=== PATIENT | female | born 1955 | race Caucasian/White ===

== ENCOUNTER 2024-05-29 11:21 | Inpatient (IN) | payer MEDICARE, BC ==
[2024-05-29] VITALS (15 sets, daily range): BP systolic 116–145; BP diastolic 75–96; PULSE 102–151; RESP 18–29; TEMP 98.1–99.1; O2SAT 95–96
[~2024-05-29] VITALS: Ht 170.2 cm; Wt 89.8 kg
[~2024-05-29 11:21] MED LIST: HYDROCODON-ACE1 EA12 PO; NAPROXEN250 MG PO
[2024-05-29] MEDS: SODIUM CHLORIDE 0.9% 500ML 500 ML IV ONE (11:46)
[2024-05-29] MEDS: METOPROLOL TARTRATE INJ 1 MG/ML VIAL IV ONE (11:52)
[2024-05-29] MEDS ORDERED: METOPROLOL TARTRATE INJ 1 MG/ML VIAL ONE (11:55)
[2024-05-29 11:56] LABS: BASOPHILS % 0.2 % (0.0-1.0); EOSINOPHILS % 0.1 % (0.0-6.0); HEMATOCRIT 33.4 % (34.2-44.1); HEMOGLOBIN 11.6 g/dL (12.0-16.0); LYMPHOCYTES # (AUTO) 0.8 (1.0-3.2); LYMPHOCYTES % 4.6 % (18.0-39.1); MEAN CORPUSCULAR HEMOGLOBIN 29.5 pg (28-32); MEAN CORPUSCULAR HGB CONC 34.7 g/dL (31-35); MONOCYTES # (AUTO) 1.7 (0.2-0.8); MONOCYTES % 10.2 % (4.4-11.3); NEUTROPHILS # (AUTO) 13.9 (2.1-6.9); NEUTROPHILS % 84.4 % (38.7-80.0); PLATELET COUNT 470 x10e3/uL (140-360); RED BLOOD COUNT 3.93 x10e6/uL (3.6-5.1); RED CELL DISTRIBUTION WIDTH 13.5 % (11.7-14.4); WHITE BLOOD COUNT 16.43 x10e3/uL (4.8-10.8)
[2024-05-29] MEDS ORDERED: AMIODARONE HCL 150 MG/100 ML BAG IV ONE (12:00)
[2024-05-29 12:12] LABS: INR 1.07; PROTHROMBIN TIME 14.7 seconds (11.9-14.5)
[2024-05-29 12:13] LABS: PARTIAL THROMBOPLASTIN TIME 35.3 seconds (23.8-35.5)
[2024-05-29 12:25] LABS: ALANINE AMINOTRANSFERASE 24 IU/L (0-55); ALBUMIN 3.5 g/dL (3.5-5.0); ALKALINE PHOSPHATASE 150 IU/L (40-150); ANION GAP 19.6 mmol/L (8-16); BILIRUBIN,TOTAL 0.8 mg/dL (0.2-1.2); BLOOD UREA NITROGEN 7 mg/dL (7-26); BUN/CREATININE RATIO 10 (6-25); CARBON DIOXIDE 15 mmol/L (22-29); CHLORIDE 88 mmol/L (98-107); CREATINE KINASE 52 IU/L (29-168); CREATININE, SERUM 0.68 mg/dL (0.57-1.11); EST GLOMERULAR FILTRATION RATE 94 ML/MIN (>=60); GLUCOSE 143 mg/dL (74-118); MAGNESIUM 1.6 MG/DL (1.3-2.1); POTASSIUM 4.6 mmol/L (3.5-5.1); TOTAL PROTEIN 6.9 g/dL (6.5-8.1)
[2024-05-29 12:27] LABS: SODIUM 118 mmol/L (136-145)
[2024-05-29] MEDS: AMIODARONE HCL 100 ML IV ONE (12:43)
[2024-05-29 12:45] LABS: THYROID STIMULATING HORMONE 0.999 uIU/mL (0.350-4.940)
[2024-05-29 12:47] LABS: TROPONIN I < 0.001 ng/mL (0-0.300)
[2024-05-29] MEDS: ENOXAPARIN SODIUM INJ 100 MG/ML SYR SC ONE (13:03)
[2024-05-29] MEDS: AMIODARONE 900MG 500 ML IV SCH (13:05)
[2024-05-29 13:07] LABS: BLOOD UREA NITROGEN 7 mg/dL (7-26); GLUCOSE 140 mg/dL (74-118); OSMOLALITY,SERUM 241 mOsm/kg (278-305)
[2024-05-29 13:14] LABS: SODIUM 119 mmol/L (136-145)
[2024-05-29] MEDS ORDERED: BISACODYL 10 MG SUPP PR PRN (13:45)
[2024-05-29] MEDS ORDERED: AMLODIPINE BESY10 MG PO (15:41)
[2024-05-29] MEDS ORDERED: BENICAR20 MG PO (15:41)
[2024-05-29] MEDS ORDERED: LASIX20 MG PO (15:41)
[2024-05-29] MEDS ORDERED: ATENOLOL50 MG PO (15:41)
[2024-05-29] MEDS: ACETAMINOPHEN 325 MG TAB PO PRN (15:55)
[2024-05-29] MEDS ORDERED: IOPAMIDOL 370 MG/ML 100 ML INFUS..BTL INJ ONE (15:59)
[2024-05-29] MEDS: SODIUM CHLORIDE 1 GM TAB PO SCH ×2 (17:13→20:42)
[2024-05-29 17:56] LABS: ANION GAP 18.3 mmol/L (8-16); CALCIUM 9.1 mg/dL (8.4-10.2); CREATINE KINASE 58 IU/L (29-168); CREATININE, SERUM 0.65 mg/dL (0.57-1.11); POTASSIUM 4.3 mmol/L (3.5-5.1)
[2024-05-29 18:04] LABS: TROPONIN I < 0.001 ng/mL (0-0.300)
[2024-05-29] MEDS: METOPROLOL TARTRATE 25 MG TAB PO SCH (18:38)
[2024-05-30] VITALS (30 sets, daily range): BP systolic 98–160; BP diastolic 54–94; PULSE 78–121; RESP 14–31; TEMP 97.3–98.6; O2SAT 91–99
[2024-05-30] MEDS: ENOXAPARIN SODIUM INJ 100 MG/ML SYR SC SCH (00:25)
[2024-05-30] MEDS ORDERED: ENOXAPARIN INJ 80 MG/0.8 ML SYR SC SCH (01:00)
[2024-05-30 01:17] LABS: CREATINE KINASE 65 IU/L (29-168)
[2024-05-30 01:42] LABS: TROPONIN I < 0.001 ng/mL (0-0.300)
[2024-05-30 02:24] LABS: BILIRUBIN,URINE SMALL (NEGATIVE); CLARITY,URINE CLEAR (CLEAR); COLOR,URINE YELLOW (YELLOW); GLUCOSE, URINE NEGATIVE (NEGATIVE); KETONES,URINE 2+ (NEGATIVE); LEUKOCYTE ESTERASE ,URINE NEGATIVE (NEGATIVE); NITRITE,URINE NEGATIVE (NEGATIVE); PH,URINE 6 (5 - 7); PROTEIN,URINE DIPSTICK 1+ (NEGATIVE); URINE UROBILINOGEN 0.2 mg/dL (0.2 - 1)
[2024-05-30 02:57] LABS: BACTERIA,URINE MODERATE /HPF; EPITHELIAL CELLS,URINE FEW /LPF; RBC,URINE 0-5 /HPF (0-5); TRANSITIONAL EPI CELLS,URINE FEW; WBC,URINE (MAN) 0-5 /HPF (0-5)
[2024-05-30 06:59] LABS: BASOPHILS % 0.1 % (0.0-1.0); HEMATOCRIT 35.2 % (34.2-44.1); HEMOGLOBIN 11.6 g/dL (12.0-16.0); LYMPHOCYTES # (AUTO) 0.8 (1.0-3.2); LYMPHOCYTES % 5.6 % (18.0-39.1); MEAN CORPUSCULAR HEMOGLOBIN 28.7 pg (28-32); MEAN CORPUSCULAR VOLUME 87.1 fL (81-99); MONOCYTES # (AUTO) 1.5 (0.2-0.8); MONOCYTES % 10.9 % (4.4-11.3); NEUTROPHILS # (AUTO) 11.1 (2.1-6.9); NEUTROPHILS % 82.7 % (38.7-80.0); PLATELET COUNT 423 x10e3/uL (140-360); RED BLOOD COUNT 4.04 x10e6/uL (3.6-5.1); RED CELL DISTRIBUTION WIDTH 13.5 % (11.7-14.4); WHITE BLOOD COUNT 13.44 x10e3/uL (4.8-10.8)
[2024-05-30 07:35] LABS: ALBUMIN 3.2 g/dL (3.5-5.0); ALBUMIN/GLOBULIN RATIO 0.8 (0.8-2.0); ANION GAP 17.2 mmol/L (8-16); BILIRUBIN,TOTAL 0.5 mg/dL (0.2-1.2); CALCIUM 9.2 mg/dL (8.4-10.2); CREATININE, SERUM 0.58 mg/dL (0.57-1.11); MAGNESIUM 1.7 MG/DL (1.3-2.1); POTASSIUM 4.2 mmol/L (3.5-5.1); TOTAL PROTEIN 7.4 g/dL (6.5-8.1)
[2024-05-30 07:43] LABS: CHOL/HDL RATIO 2.7 (3.0-3.6); CHOLESTEROL 153 MD/DL (0-199); CREATINE KINASE 72 IU/L (29-168); HDL CHOLESTEROL 57 MG/DL (40-60); LDL CHOLESTEROL 78 MG/DL (60-130); TRIGLYCERIDES 89 MG/DL (0-149)
[2024-05-30 07:49] LABS: TROPONIN I < 0.001 ng/mL (0-0.300)
[2024-05-30 07:57] LABS: FERRITIN 528.74 ng/mL (4.63-204.00); THYROID STIMULATING HORMONE 0.612 uIU/mL (0.350-4.940)
[2024-05-30] MEDS: LEVALBUTEROL HCL SOLN NEBU 0.63 MG/3 ML NEB INH PRN (08:00)
[2024-05-30] MEDS ORDERED: AMLODIPINE BESYLATE 10 MG TAB PO SCH (09:00)
[2024-05-30] MEDS: DOCUSATE SODIUM 100 MG CAP PO SCH (09:00)
[2024-05-30] MEDS: SENNOSIDES 8.6 MG TAB PO SCH (09:00)
[2024-05-30] MEDS: FAMOTIDINE 20 MG/2 ML VIAL IV SCH (09:01)
[2024-05-30] MEDS: OLMESARTAN 20 MG TAB PO SCH (09:04)
[2024-05-30] MEDS: METHYLPREDNISOLONE SOD SUCC 40 MG/ML VIAL 1ML IV ONE (09:05)
[2024-05-30 13:13] LABS: ANION GAP 21.4 mmol/L (8-16); CALCIUM 9.4 mg/dL (8.4-10.2); CREATININE, SERUM 0.61 mg/dL (0.57-1.11); POTASSIUM 4.4 mmol/L (3.5-5.1)
[2024-05-30] MEDS: FUROSEMIDE INJ 10 MG/ML 4 ML VIAL IV ONE (14:15)
[2024-05-30 14:17] LABS: ABG HCO3 19 mmol/L (22-26); ABG PCO2 38 mmHg (35-45); ABG PO2 64 mmHg (80-105); ABG TCO2 20
[2024-05-30 15:52] LABS: BODY FLUID APPEARANCE SL.CLOUDY; BODY FLUID COLOR YELLOW; BODY FLUID TYPE PLEURAL; RBC,BODY FLUID 2000 cells/uL; WBC,BODY FLUID 1537 cells/uL
[2024-05-30 17:08] LABS: LYMPHOCYTES,BODY FLUID 23 %; MONO/MACROPHG,BODY FLUID 6 %; OTHER CELLS,BODY FLUID 23 %; TOTAL CELLS COUNTED (DIFF) 100
[2024-05-30] MEDS: AMIODARONE HCL 200 MG TAB PO SCH (17:40)
[2024-05-30] MEDS: MELATONIN 5 MG TABLET PO SCH (20:07)
[2024-05-31] VITALS (23 sets, daily range): BP systolic 97–140; BP diastolic 60–79; PULSE 46–117; RESP 15–23; TEMP 97.8–98.3; O2SAT 92–100
[2024-05-31 06:22] LABS: BASOPHILS % 0.1 % (0.0-1.0); HEMATOCRIT 31.8 % (34.2-44.1); HEMOGLOBIN 10.5 g/dL (12.0-16.0); LYMPHOCYTES # (AUTO) 0.5 (1.0-3.2); LYMPHOCYTES % 4.9 % (18.0-39.1); MEAN CORPUSCULAR HEMOGLOBIN 28.8 pg (28-32); MEAN CORPUSCULAR VOLUME 87.1 fL (81-99); MONOCYTES # (AUTO) 0.9 (0.2-0.8); MONOCYTES % 8.8 % (4.4-11.3); NEUTROPHILS # (AUTO) 9.1 (2.1-6.9); NEUTROPHILS % 85.4 % (38.7-80.0); PLATELET COUNT 438 x10e3/uL (140-360); RED BLOOD COUNT 3.65 x10e6/uL (3.6-5.1); RED CELL DISTRIBUTION WIDTH 13.4 % (11.7-14.4); WHITE BLOOD COUNT 10.61 x10e3/uL (4.8-10.8)
[2024-05-31 06:44] LABS: ALBUMIN 2.5 g/dL (3.5-5.0); ALBUMIN/GLOBULIN RATIO 0.7 (0.8-2.0); ANION GAP 16.2 mmol/L (8-16); BILIRUBIN,TOTAL 0.4 mg/dL (0.2-1.2); CALCIUM 8.8 mg/dL (8.4-10.2); CREATININE, SERUM 0.57 mg/dL (0.57-1.11); MAGNESIUM 1.8 MG/DL (1.3-2.1); POTASSIUM 4.2 mmol/L (3.5-5.1); TOTAL PROTEIN 6.1 g/dL (6.5-8.1)
[2024-05-31 12:33] LABS: BODY FLUID APPEARANCE CLOUDY; BODY FLUID COLOR YELLOW; BODY FLUID TYPE PLEURAL; RBC,BODY FLUID 4000 cells/uL; WBC,BODY FLUID 1952 cells/uL
[2024-05-31 12:55] LABS: LYMPHOCYTES,BODY FLUID 20 %; MONO/MACROPHG,BODY FLUID 20 %; NEUTROPHILS,BODY FLUID 43 %; TOTAL CELLS COUNTED (DIFF) 100
[2024-05-31 12:56] LABS: OTHER CELLS,BODY FLUID 17 %
[2024-05-31] MEDS ORDERED: GUAIFENESIN 600 MG TAB PO PRN (15:00)
[2024-06-01] VITALS (33 sets, daily range): BP systolic 104–131; BP diastolic 64–109; PULSE 60–149; RESP 14–21; TEMP 98–98.9; O2SAT 95–99
[2024-06-01 06:09] LABS: BASOPHILS % 0.1 % (0.0-1.0); HEMATOCRIT 34.8 % (34.2-44.1); HEMOGLOBIN 11.6 g/dL (12.0-16.0); LYMPHOCYTES # (AUTO) 1.2 (1.0-3.2); LYMPHOCYTES % 12.3 % (18.0-39.1); MEAN CORPUSCULAR HEMOGLOBIN 29.3 pg (28-32); MEAN CORPUSCULAR HGB CONC 33.3 g/dL (31-35); MEAN CORPUSCULAR VOLUME 87.9 fL (81-99); MONOCYTES # (AUTO) 1.2 (0.2-0.8); MONOCYTES % 11.8 % (4.4-11.3); NEUTROPHILS # (AUTO) 7.4 (2.1-6.9); NEUTROPHILS % 75.4 % (38.7-80.0); PLATELET COUNT 476 x10e3/uL (140-360); RED BLOOD COUNT 3.96 x10e6/uL (3.6-5.1); RED CELL DISTRIBUTION WIDTH 13.7 % (11.7-14.4)
[2024-06-01 06:28] LABS: ALBUMIN 2.7 g/dL (3.5-5.0); ALBUMIN/GLOBULIN RATIO 0.8 (0.8-2.0); ANION GAP 15.7 mmol/L (8-16); BILIRUBIN,TOTAL 0.4 mg/dL (0.2-1.2); CALCIUM 8.5 mg/dL (8.4-10.2); CREATININE, SERUM 0.57 mg/dL (0.57-1.11); POTASSIUM 3.7 mmol/L (3.5-5.1); TOTAL PROTEIN 6.1 g/dL (6.5-8.1)
[2024-06-01] MEDS: DIGOXIN INJ 0.25 MG/ML 2 ML AMP IV ONE ×2 (09:09→14:25)
[2024-06-01] MEDS: SODIUM CHLORIDE 1 GM TAB PO SCH (15:38)
[2024-06-01] MEDS: METOPROLOL TARTRATE 25 MG TAB PO SCH (15:38)
[2024-06-02] VITALS (29 sets, daily range): BP systolic 99–133; BP diastolic 65–93; PULSE 50–166; RESP 14–22; TEMP 98–98.6; O2SAT 91–99
[2024-06-02 06:35] LABS: BASOPHILS % 0.2 % (0.0-1.0); EOSINOPHILS % 0.1 % (0.0-6.0); HEMATOCRIT 34.6 % (34.2-44.1); HEMOGLOBIN 11.6 g/dL (12.0-16.0); LYMPHOCYTES # (AUTO) 1.4 (1.0-3.2); LYMPHOCYTES % 16.1 % (18.0-39.1); MEAN CORPUSCULAR HEMOGLOBIN 29.5 pg (28-32); MEAN CORPUSCULAR HGB CONC 33.5 g/dL (31-35); MONOCYTES # (AUTO) 1.1 (0.2-0.8); MONOCYTES % 11.7 % (4.4-11.3); NEUTROPHILS # (AUTO) 6.4 (2.1-6.9); NEUTROPHILS % 71.7 % (38.7-80.0); PLATELET COUNT 478 x10e3/uL (140-360); RED BLOOD COUNT 3.93 x10e6/uL (3.6-5.1); RED CELL DISTRIBUTION WIDTH 13.8 % (11.7-14.4); WHITE BLOOD COUNT 8.95 x10e3/uL (4.8-10.8)
[2024-06-02 07:10] LABS: ANION GAP 13.8 mmol/L (8-16); BLOOD UREA NITROGEN < 5 mg/dL (7-26); CALCIUM 8.7 mg/dL (8.4-10.2); CARBON DIOXIDE 27 mmol/L (22-29); CHLORIDE 98 mmol/L (98-107); CREATININE, SERUM 0.58 mg/dL (0.57-1.11); EST GLOMERULAR FILTRATION RATE 97 ML/MIN (>=60); GLUCOSE 114 mg/dL (74-118); MAGNESIUM 1.8 MG/DL (1.3-2.1); POTASSIUM 3.8 mmol/L (3.5-5.1); SODIUM 135 mmol/L (136-145)
[2024-06-02 07:11] LABS: BUN/CREATININE RATIO 9 (6-25)
[2024-06-02] MEDS: OLMESARTAN 20 MG TAB PO SCH (09:19)
[2024-06-02] MEDS: DIGOXIN INJ 0.25 MG/ML 2 ML AMP IV ONE (17:26)
[2024-06-02] MEDS: METOPROLOL TARTRATE 50 MG TAB PO SCH (21:21)
[2024-06-02] MEDS: DIGOXIN INJ 0.25 MG/ML 2 ML AMP ONE (21:22)
[2024-06-03] VITALS (26 sets, daily range): BP systolic 116–143; BP diastolic 61–102; PULSE 72–133; RESP 13–23; TEMP 97.3–99.2; O2SAT 94–100
[2024-06-03 06:44] LABS: BASOPHILS % 0.5 % (0.0-1.0); EOSINOPHILS % 0.1 % (0.0-6.0); HEMATOCRIT 35.1 % (34.2-44.1); HEMOGLOBIN 11.2 g/dL (12.0-16.0); LYMPHOCYTES # (AUTO) 1.4 (1.0-3.2); LYMPHOCYTES % 16.3 % (18.0-39.1); MEAN CORPUSCULAR HEMOGLOBIN 28.6 pg (28-32); MEAN CORPUSCULAR HGB CONC 31.9 g/dL (31-35); MEAN CORPUSCULAR VOLUME 89.5 fL (81-99); MONOCYTES # (AUTO) 0.9 (0.2-0.8); NEUTROPHILS # (AUTO) 6.1 (2.1-6.9); NEUTROPHILS % 71.3 % (38.7-80.0); PLATELET COUNT 436 x10e3/uL (140-360); RED BLOOD COUNT 3.92 x10e6/uL (3.6-5.1); WHITE BLOOD COUNT 8.55 x10e3/uL (4.8-10.8)
[2024-06-03 07:09] LABS: ALBUMIN 2.5 g/dL (3.5-5.0); ALBUMIN/GLOBULIN RATIO 0.8 (0.8-2.0); ANION GAP 11.7 mmol/L (8-16); BILIRUBIN,TOTAL 0.2 mg/dL (0.2-1.2); CALCIUM 8.6 mg/dL (8.4-10.2); CREATININE, SERUM 0.58 mg/dL (0.57-1.11); MAGNESIUM 1.8 MG/DL (1.3-2.1); POTASSIUM 3.7 mmol/L (3.5-5.1); TOTAL PROTEIN 5.5 g/dL (6.5-8.1)
[2024-06-03] MEDS: METOPROLOL TARTRATE 50 MG TAB PO SCH (12:22)
[2024-06-03] MEDS: DIGOXIN INJ 0.25 MG/ML 2 ML AMP IV ONE (12:23)
[2024-06-03] MEDS: LACTOBACILLUS ACIDOPHILUS CAPSULE PO SCH (15:58)
[2024-06-04] VITALS (16 sets, daily range): BP systolic 97–135; BP diastolic 62–83; PULSE 64–110; RESP 14–24; TEMP 97.8–98.4; O2SAT 96–100
[2024-06-04 06:38] LABS: BASOPHILS % 0.3 % (0.0-1.0); EOSINOPHILS % 0.3 % (0.0-6.0); HEMOGLOBIN 11.4 g/dL (12.0-16.0); LYMPHOCYTES # (AUTO) 1.4 (1.0-3.2); LYMPHOCYTES % 16.2 % (18.0-39.1); MEAN CORPUSCULAR HEMOGLOBIN 29.2 pg (28-32); MEAN CORPUSCULAR HGB CONC 32.6 g/dL (31-35); MEAN CORPUSCULAR VOLUME 89.7 fL (81-99); MONOCYTES # (AUTO) 0.9 (0.2-0.8); MONOCYTES % 10.2 % (4.4-11.3); NEUTROPHILS # (AUTO) 6.2 (2.1-6.9); NEUTROPHILS % 72.1 % (38.7-80.0); PLATELET COUNT 401 x10e3/uL (140-360); RED CELL DISTRIBUTION WIDTH 13.9 % (11.7-14.4); WHITE BLOOD COUNT 8.66 x10e3/uL (4.8-10.8)
[2024-06-04 06:58] LABS: ANION GAP 11.9 mmol/L (8-16); BLOOD UREA NITROGEN < 5 mg/dL (7-26); CALCIUM 8.7 mg/dL (8.4-10.2); CARBON DIOXIDE 31 mmol/L (22-29); CHLORIDE 99 mmol/L (98-107); EST GLOMERULAR FILTRATION RATE 97 ML/MIN (>=60); GLUCOSE 103 mg/dL (74-118); MAGNESIUM 1.9 MG/DL (1.3-2.1); POTASSIUM 3.9 mmol/L (3.5-5.1); SODIUM 138 mmol/L (136-145)
[2024-06-04 07:05] LABS: BUN/CREATININE RATIO 8 (6-25)
[2024-06-04] MEDS: MAGNESIUM SULFATE 2GM/50ML 50 ML IV ONE (10:18)
[2024-06-04] MEDS: DIGOXIN INJ 0.25 MG/ML 2 ML AMP IV ONE (17:34)
[2024-06-04] MEDS: SODIUM CHLORIDE 0.9% 250ML 250 ML ONE (17:44)
[2024-06-05] VITALS (8 sets, daily range): BP systolic 113–134; BP diastolic 65–88; PULSE 67–128; RESP 17–20; TEMP 97.8–99.1; O2SAT 92–99
[2024-06-05 06:32] LABS: BASOPHILS % 0.4 % (0.0-1.0); EOSINOPHILS % 0.1 % (0.0-6.0); HEMATOCRIT 35.8 % (34.2-44.1); HEMOGLOBIN 11.5 g/dL (12.0-16.0); LYMPHOCYTES # (AUTO) 1.4 (1.0-3.2); LYMPHOCYTES % 16.1 % (18.0-39.1); MEAN CORPUSCULAR HEMOGLOBIN 28.7 pg (28-32); MEAN CORPUSCULAR HGB CONC 32.1 g/dL (31-35); MEAN CORPUSCULAR VOLUME 89.3 fL (81-99); MONOCYTES # (AUTO) 0.9 (0.2-0.8); MONOCYTES % 10.9 % (4.4-11.3); NEUTROPHILS # (AUTO) 6.1 (2.1-6.9); NEUTROPHILS % 71.3 % (38.7-80.0); PLATELET COUNT 400 x10e3/uL (140-360); RED BLOOD COUNT 4.01 x10e6/uL (3.6-5.1); WHITE BLOOD COUNT 8.53 x10e3/uL (4.8-10.8)
[2024-06-05] MEDS: METOPROLOL TARTRATE INJ 1 MG/ML VIAL IV PRN (06:38)
[2024-06-05 07:05] LABS: ALANINE AMINOTRANSFERASE 39 IU/L (0-55); ALBUMIN/GLOBULIN RATIO 1.2 (0.8-2.0); ALKALINE PHOSPHATASE 101 IU/L (40-150); ANION GAP 13.9 mmol/L (8-16); BILIRUBIN,TOTAL 0.3 mg/dL (0.2-1.2); BLOOD UREA NITROGEN < 5 mg/dL (7-26); CALCIUM 8.4 mg/dL (8.4-10.2); CARBON DIOXIDE 28 mmol/L (22-29); CHLORIDE 99 mmol/L (98-107); CREATININE, SERUM 0.61 mg/dL (0.57-1.11); EST GLOMERULAR FILTRATION RATE 96 ML/MIN (>=60); GLUCOSE 112 mg/dL (74-118); POTASSIUM 3.9 mmol/L (3.5-5.1); SODIUM 137 mmol/L (136-145); TOTAL PROTEIN 5.6 g/dL (6.5-8.1)
[2024-06-05 07:21] LABS: BUN/CREATININE RATIO 8 (6-25)
[2024-06-05] MEDS: DIGOXIN 0.125 MG TAB PO SCH (08:43)
[2024-06-05] MEDS: SODIUM CHLORIDE 0.9% 250ML 250 ML ONE (12:30)
[2024-06-05] MEDS: ONDANSETRON HCL INJ 2MG/ML 2ML 2 MG/ML VIAL IV PRN (20:48)
[2024-06-06] VITALS (9 sets, daily range): BP systolic 112–137; BP diastolic 74–84; PULSE 65–128; RESP 16–22; TEMP 98.2–99; O2SAT 92–97
[2024-06-06 06:43] LABS: BASOPHILS % 0.4 % (0.0-1.0); EOSINOPHILS % 0.1 % (0.0-6.0); HEMATOCRIT 34.5 % (34.2-44.1); LYMPHOCYTES # (AUTO) 1.5 (1.0-3.2); LYMPHOCYTES % 19.7 % (18.0-39.1); MEAN CORPUSCULAR HEMOGLOBIN 28.9 pg (28-32); MEAN CORPUSCULAR HGB CONC 31.9 g/dL (31-35); MEAN CORPUSCULAR VOLUME 90.8 fL (81-99); MONOCYTES # (AUTO) 0.9 (0.2-0.8); MONOCYTES % 12.3 % (4.4-11.3); NEUTROPHILS % 66.3 % (38.7-80.0); PLATELET COUNT 376 x10e3/uL (140-360); RED CELL DISTRIBUTION WIDTH 14.5 % (11.7-14.4); WHITE BLOOD COUNT 7.55 x10e3/uL (4.8-10.8)
[2024-06-06 07:22] LABS: ANION GAP 15.8 mmol/L (8-16); BLOOD UREA NITROGEN < 5 mg/dL (7-26); CALCIUM 8.8 mg/dL (8.4-10.2); CARBON DIOXIDE 25 mmol/L (22-29); CHLORIDE 100 mmol/L (98-107); CREATININE, SERUM 0.69 mg/dL (0.57-1.11); EST GLOMERULAR FILTRATION RATE 93 ML/MIN (>=60); GLUCOSE 90 mg/dL (74-118); POTASSIUM 3.8 mmol/L (3.5-5.1); SODIUM 137 mmol/L (136-145)
[2024-06-06 07:28] LABS: BUN/CREATININE RATIO 7 (6-25)
[2024-06-06] MEDS: ENOXAPARIN SODIUM INJ 100 MG/ML SYR SC SCH (13:14)
[2024-06-08 07:02] LABS: TOTAL PROTEIN,BODY FLUID 3.6 g/dL
[2024-06-12 04:39] LABS: ABG HCO3 19 mmol/L (22-26); ABG PCO2 38 mmHg (35-45); ABG PO2 64 mmHg (80-105); ABG TCO2 20
== END 2024-06-06 20:29 | disposition short-term general hospital (02) | DRG 308 ==
LOC: ER 11:38 → ERHOLD 12:59 → ICU 15:02 → MED/SURG2 06-04 15:25 → MED/SURG3 06-06 17:35
PROVIDERS: ADMIT Internal Medicine; ATTEND Internal Medicine
PROC: 02HV33Z Insertion of Infusion Device into Superior Vena Cava, Percutaneous Approach (ICD-10-PCS; 2024-05-29)
PROC: 0W9B3ZZ Drainage of Left Pleural Cavity, Percutaneous Approach (ICD-10-PCS; principal; 2024-05-30)
PROC: 0W993ZZ Drainage of Right Pleural Cavity, Percutaneous Approach (ICD-10-PCS; 2024-05-31)
DX: I48.0 Paroxysmal atrial fibrillation (principal); I11.0 Hypertensive heart disease with heart failure; I50.33 Acute on chronic diastolic (congestive) heart failure; J15.9 Unspecified bacterial pneumonia; J96.01 Acute respiratory failure with hypoxia; E87.1 Hypo-osmolality and hyponatremia; J90 Pleural effusion, not elsewhere classified; E87.20 Acidosis, unspecified; I31.39 Other pericardial effusion (noninflammatory); R33.9 Retention of urine, unspecified; R09.89 Other specified symptoms and signs involving the circulatory and respiratory systems; E66.09 Other obesity due to excess calories; Z68.31 Body mass index [BMI] 31.0-31.9, adult; D72.829 Elevated white blood cell count, unspecified; D64.9 Anemia, unspecified; Z11.52 Encounter for screening for COVID-19
CPT/HCPCS: 32555; 36415; 36569; 36600; 71045; 71260; 74177; 74470; 76604; 80048; 80053; 80061; 81001; 82550; 82607; 82728; 82805; 82947; 83036; 83540; 83605; 83615; 83735; 83880; 83935; 84157; 84295; 84300; 84443; 84466; 84484; 84520; 85025; 85610; 85730; 87040; 87070; 87086; 87205; 87400; 89051; 93005; 93306; 93970; 94640; 94799; 99252; 99285; C1729; J0696; J1160; J1650; J1940; J2405; J2470; J2543; J2919; J3475; J7040; J7050; Q9967; U0002